=== PATIENT | female | born 2000 | race Hispanic/Latino ===

== ENCOUNTER 2022-06-22 08:41 | Outpatient (CLI) | payer OTHER ==
--- NOTE | 2022-06-22 10:00 | XRay Report ---
LUMBAR SPINE 3 VIEWS INDICATION: LOW BACK PAIN. COMPARISON: None. FINDINGS: There is no fracture, subluxation, or other acute radiographic abnormality of the lumbar spine. There are 6 nonrib-bearing lumbar-type vertebral bodies. The disc space heights are maintained. Pedicles a ppear intact. Signer Name: Riley Mckeon MD Signed: 06/22/2022 9:56 AM Workstation Name: [employer]
== END 2022-06-22 08:42 | disposition home or self-care (01) ==
LOC: XRAY 08:41
PROVIDERS: ATTEND Internal Medicine
DX: M54.50 Low back pain, unspecified (principal)
CPT/HCPCS: 72100